=== PATIENT | female | born 1980 | race Caucasian/White ===

== ENCOUNTER → 2017-01-29 | Outpatient (CLI) | payer BC ==
[2014-11-29 09:08] VITALS: BP 118/68
[~2017-01-29] MED LIST: ASPI-482 PO; BUPR100T8 PO; CARI350T PO; CLON0.5T3 PO; DEXA4TAB PO; ESTR1PAT77 TD; ESTR8.1S2 TD; FAMC500T2 PO; FEXO1TAB27 PO; FLUO10CA13 PO; ISOM1CAP PO; JOINT JUICE PO; LORA0.5T PO; LORA10TA68 PO; MELO15TA23 PO; MELO7.5T29 PO; MULT1TAB52 PO; PROP10TA PO; PSEU120T9 PO; TRIA10.8 NS; VENTOLIN HFA18 GM IH; VITA1CAP PO
--- NOTE | 2017-01-29 10:17 | KCIC ---
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 Tremors which are related to patient positioning. Vomiting. Surgery was on January 01. Technique: Study is dated January 29, 2017. MRI evaluation of the brain was performed using sagittal T1, axial FLAIR, axial T2, axial T1, axial gradient echo, coronal T2, and axial diffusion with ADC mapping sequences. Preoperative MRI from September 14, 2012 was reviewed in comparison. Findings: There are postsurgical changes of suboccipital decompression. There is a postoperative fluid collection which extends both along the craniotomy and craniectomy sites down to the level of C4. This measures 8 cm craniocaudal, 5 cm AP, and 5 cm transverse. This fluid collection does not exert any mass effect on the cerebellum or the medulla. There is CSF both anterior and posterior to the cervicomedullary junction. There is no downward sagging of the brain. There are no subdural fluid collections or other findings to suggest intracranial hypotension. 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 The ventricles are normal in size and configuration. There is no acute intracranial hemorrhage. There is no restricted diffusion to suggest an acute infarct. Intracranial flow voids are preserved. Paranasal sinuses and mastoid air cells are clear. IMPRESSION: 1. Suboccipital decompression with postoperative fluid collection at the craniectomy site. Pseudomeningocele/CSF leak as well as seroma or hematoma are considerations. 2. Interval resection of pineal cysts. Electronically signed by: Matthew Jerry MD (01/29/2017 10:14 AM) [facility]IC[facility]
--- NOTE | 2017-01-29 10:38 | KCIC ---
INDICATION: Recent suboccipital decompression for Chiari I as well as pineal cyst resection. Tremors, vomiting, symptoms appear to be positional. Surgery was on January 01. TECHNIQUE: Sagittal T1, sagittal T2, sagittal STIR, axial T2, and axial T2 gradient sequences are provided. Comparison is from January 14, 2016. FINDINGS: Please see MRI brain report for description of the postoperative fluid collection at the craniectomy site. There is CSF both ventral and dorsal to the cord and the medulla. There is no cord signal abnormality. There is no worrisome marrow lesion. There is no marrow edema. There is report of partial laminectomy, a portion of the C1 and C2 posterior elements may have been resected. Both rings appear complete. Degenerative findings remain most notable at C5-C6 and C6-C7. Mild disc osteophyte complex at C5-C6 is noted. At C6-C7 there is a disc osteophyte complex and left paracentral protrusion. These findings are stable. IMPRESSION: 1. Postoperative findings of suboccipital decompression with postoperative fluid collection at the craniectomy site. 2. Postoperative fluid collection does not exert any mass effect at the cervical medullary junction or on the cervical cord. 3. Mild degenerative changes in the cervical spine are similar to the 2016 study, remain most notable at C5-C6 and C6-C7. Electronically signed by: Matthew Jerry MD (01/29/2017 10:35 AM) [facility]
== END | disposition home or self-care (01) ==
LOC: KCIC MRI 08:34
PROVIDERS: ATTEND Internal Medicine
DX: G93.5 Compression of brain (principal); R25.1 Tremor, unspecified; R53.1 Weakness; R11.10 Vomiting, unspecified
CPT/HCPCS: 70551; 72141

== ENCOUNTER → 2017-02-03 | Outpatient (CLI) | payer BC ==
[~2017-02-03] VITALS: Ht 160 cm; Wt 78.5 kg
[~2017-02-03] MED LIST changes: +ACET325T9 PO; +DIPH25CA58 PO; +ONDA4TAB10 PO
[2017-02-03 08:41] VITALS: BP 135/84
--- NOTE | 2017-02-03 10:53 | RAD ---
Indication possible infection. Assess opening and closing pressures. Lumbar puncture was explained to the patient. The risks of infection and bleeding were outlined. The possibility of damage to nerve roots was discussed. The possibility of a postprocedure headache necessitating placement of a blood patch was also discussed. The patient understood the risks associated with the procedure and wished to proceed The patient was placed in a left side down decubitus position. The lumbar spine was palpated and an appropriate level for entry into the subarachnoid space was identified with palpation and fluoroscopy. Skin was then prepped and draped in the routine fashion. Local anesthesia was accomplished with 1% lidocaine. Using a 20-gauge spinal needle and a midline approach the subarachnoid space was punctured at L2-3. Clear CSF was encountered. The opening pressure was 22 mmHg. Approximately 11.5 cc of clear CSF was withdrawn for analysis and placed in 4 tubes. Retrieved CSF was transferred to pathology. The closing pressure was 14 mmHg A single spot fluoroscopic image was associated with the procedure. Fluoroscopy time associated with the procedure was 1.4 minutes. IMPRESSION: Successful lumbar puncture under fluoroscopic guidance
[2017-02-03 11:06] LABS: CSF PROTEIN 44.7 mg/dL (15.0-45.0)
[2017-02-03 11:46] LABS: CSF CLARITY CLEAR; CSF COLOR COLORLESS
== END | disposition home or self-care (01) ==
LOC: RAD 08:23
PROVIDERS: ATTEND Neurological Surgery
DX: E34.8 Other specified endocrine disorders (principal); G93.5 Compression of brain
CPT/HCPCS: 62270; 82945; 84157; 87071; 87075; 87205; 89051

== ENCOUNTER 2017-02-04 13:00 | Emergency (ER) | payer BC ==
[~2017-02-04] VITALS: Ht 160 cm; Wt 78.5 kg
[~2017-02-04 13:00] MED LIST changes: -ACET325T9 PO; -DIPH25CA58 PO; -ONDA4TAB10 PO
--- NOTE | 2017-02-04 14:26 | PHYS DOC ---
Past Medical History Past Medical History: Other Additional Past Medical Histor: pineal cyst, subarachnoid cyst Past Surgical History: Other Additional Past Surgical Histo: craniotomy, laminectomy C1-2 Alcohol Use: None Drug Use: None Adult General Chief Complaint Chief Complaint: HEADACHE HPI HPI This is a very pleasant 36-year-old female who underwent posterior cranial fossa craniectomy with removal of a intercranial cyst. This surgery was completed on January 02, 2017. Since that time she's had persistent headaches and persistent weakness despite these debulking procedure. She was seen yesterday by differential radiology and underwent a lumbar puncture design specifically 2 drops of the fluid from intracranial fluid collection that she has had at C5 as well as to collect opening pressures. When this procedure was done yesterday she had no headache opening pressure initially was 22 mmHg closing pressure the but by the time the procedure was over was 14. I spoke directly to the interventional radiology completed this lumbar puncture and he read the dictation to be directly. At this point she has taken Tylenol and Motrin with some release of her symptoms. She is completely asymptomatic when she lies down flat she is extremely somatic when she sits up from a sitting or standing position. She denies any new focal neurologic deficits, vision changes, voice changes or changes in thought patterns. Patient denies any vomiting, nausea or other fevers chills or neck pain. Pain is 0 out of 10 at laying down significant moderate pain with sitting up. Pain is described as throbbing and achy. It is not worse of life or sudden onset. Review of Systems Review of Systems Constitutional: Denies fever or chills [] Eyes: Denies change in visual acuity, redness, or eye pain [] HENT: Denies nasal congestion or sore throat [] Respiratory: Denies cough or shortness of breath [] Cardiovascular: No additional information not addressed in HPI [] GI: Denies abdominal pain, nausea, vomiting, bloody stools or diarrhea [] : Denies dysuria or hematuria [] Musculoskeletal: Denies back pain or joint pain [] Integument: Denies rash or skin lesions [] Neurologic: She complains of frontal headache with generalized weakness with this new sensory changes. Endocrine: Denies polyuria or polydipsia [] Current Medications Current Medications Current Medications Medications (Trade) Dose Ordered Sig/Samson Start Time Stop Time Status Last Admin Dose Admin Acetaminophen (Tylenol) 1,000 mg 1X ONCE 8/9/17 14:45 02/04/17 14:46 DC 02/04/17 14:40 1,000 MG Diphenhydramine HCl (Benadryl) 50 mg 1X ONCE 02/04/17 14:45 02/04/17 14:46 DC 02/04/17 14:40 50 MG Ondansetron HCl (Zofran) 4 mg 1X ONCE 02/04/17 14:45 02/04/17 14:46 DC 02/04/17 14:40 4 MG Sodium Chloride 1,000 ml @ 1,000 mls/hr 1X ONCE 02/04/17 14:45 02/04/17 15:44 02/04/17 14:41 1,000 MLS/HR Allergies Allergies Allergies Coded Allergies Type Severity Reaction Last Updated Verified leuprolide Allergy Severe 11/28/14 Yes medroxyprogesterone Allergy Severe 11/28/14 Yes peanut Allergy Unknown 11/28/14 Yes Physical Exam Physical Exam His vital signs reviewed by me and recorded on the chart were borderline hypertension otherwise normal. Constitutional: Well developed, well nourished, no acute distress, non-toxic appearance. [] HENT: Normocephalic, atraumatic, bilateral external ears normal, oropharynx moist, no oral exudates, nose normal. [] Eyes: PERRLA, EOMI, conjunctiva normal, no discharge. [] Neck: Normal range of motion, no tenderness, supple, no stridor. [] Cardiovascular:Heart rate regular rhythm, no murmur [] Lungs & Thorax: Bilateral breath sounds clear to auscultation [] Skin: Warm, dry, no erythema, no rash. [] Back: No tenderness, no CVA tenderness. [] Extremities: No tenderness, no cyanosis, no clubbing, ROM intact, no edema. [] Neurologic: Alert and oriented X 3, normal motor function, normal sensory function, no focal deficits noted. [] Psychologic: Affect normal, judgement normal, mood normal. [] Current Patient Data Vital Signs Vital Signs Date Time Temp Pulse Resp B/P (MAP) Pulse Ox O2 Delivery O2 Flow Rate FiO2 02/04/17 15:20 80 117/62 (80) 98 Room Air 02/04/17 13:22 97.8 18 97.8 EKG EKG [] Radiology/Procedures Radiology/Procedures [] Course & Med Decision Making Course & Med Decision Making Pertinent Labs and Imaging studies reviewed. (See chart for details) []Hand Stapler note: Spoke with Hand Stapler called at of the service of the service at 2:15 PM Consult called back at 2:17 PM Discussed the case I presented and they agreed with course of action at this time. Hand Stapler note: Anesthesia services Hand Stapler called at of the service 2:17 PM Consult called back at 2:17 p.m. Discussed the case I presented and they agreed with treatment plan and they'll be down here approximately 08/29/29 in order to do the blood patch. We discussed opening pressure findings on Dr. Gustafson's dictated note. Patient had anesthesia at bedside by 2:30 p.m. Lumbar puncture blood patch was completed. Patient is resting, and without issue or neurologic deficit. Patient' s is no fever she's feeling markedly improved with intervention. She will be held in the emergency department and placed in a 30 angle at the bedside at 3: 30 PM. She will be set up 90 angle at 4:00 and released home. She is happy with the plan and disposition.. Dragon Disclaimer Dragon Disclaimer This electronic medical record was generated, in whole or in part, using a voice recognition dictation system. Departure Departure Impression: Primary Impression: Post lumbar puncture headache Disposition: HOME, SELF-CARE Condition: IMPROVED Referrals: DOMINIQUE EUBANKS MD (PCP) Patient Instructions: Spinal Headache Additional Instructions: Please return for any new or increasing focal neurologic deficits, fever greater than 102.2 with increasing neck pain and headache. Or if you have any questions concerns or headache is not responsive to therapy prescribed. Scripts Ondansetron (ZOFRAN ODT) 4 Mg Tab.rapdis 4 MG PO BID Y for NAUSEA/VOMITING for 7 Days, #14 TAB Prov: JOANA PINK MD 02/04/17 Acetaminophen (TYLENOL) 325 Mg Tablet 1-2 TAB PO QID, #60 TAB 2 Refills Prov: JOANA PINK MD 02/04/17 Diphenhydramine Hcl (BENADRYL) 25 Mg Capsule 1 CAP PO QHS, #30 CAP 1 Refill Prov: JOANA PINK MD 02/04/17 JOANA PINK MD Feb 04, 2017 14:26
[2017-02-04] MEDS ORDERED: ACETAMINOPHEN 500 MG TABLET PO ONE (14:45)
[2017-02-04] MEDS ORDERED: diphenhydrAMINE 50 MG/ML VIAL IVP ONE (14:45)
[2017-02-04] MEDS ORDERED: IV NORMAL SALINE 1000ML BAG 1,000 ML IV ONE (14:45)
[2017-02-04] MEDS ORDERED: ONDANSETRON PF 4 MG/2 ML VIAL. IV ONE (14:45)
[2017-02-04] MEDS ORDERED: ONDA4TAB10 PO (15:36)
[2017-02-04] MEDS ORDERED: ACET325T9 PO (15:36)
[2017-02-04] MEDS ORDERED: DIPH25CA58 PO (15:36)
[2017-02-04 15:50] VITALS: BP 114/76
== END 2017-02-04 16:21 | disposition home or self-care (01) ==
LOC: ER 13:00
DX: R51 Headache (principal); G97.1 Other reaction to spinal and lumbar puncture; R53.1 Weakness; Z88.8 Allergy status to other drugs, medicaments and biological substances; Z91.010 Allergy to peanuts; Y84.4 Aspiration of fluid as the cause of abnormal reaction of the patient, or of later complication, without mention of misadventure at the time of the procedure
CPT/HCPCS: 62273; 96361; 96374; 96375; 99284; J1200; J2405; J7030

== ENCOUNTER → 2017-06-19 | Outpatient (CLI) | payer BC ==
[~2017-06-19] MED LIST changes: +ACET325T9 PO; +DIPH25CA58 PO; +GADOBUTROL 10 MMOL/10 ML VIAL IV ONE; -ISOM1CAP PO; +ISOM1CAP9 PO; +ONDA4TAB10 PO
--- NOTE | 2017-06-19 15:35 | KCIC ---
MRI Brain with and without contrast History: Positional headaches, cognitive changes, CSF leak after ACM surgery, worsening memory loss Technique: Multiplanar, multi sequential pre and postcontrast MR imaging was performed of the brain. Contrast: 8 cc Gadavist Comparison: January 29, 2017 Findings: There again has been suboccipital decompression. Previously seen fluid collection extending through the craniectomy site has resolved. There is no new intra-axial mass effect, midline shift, or extra-axial fluid collection. There is no nodular enhancement of the leptomeninges or of the parenchyma. There is no restricted diffusion suggestive of a recent infarct or cytotoxic edema. There is preservation of the major arterial intracranial flow voids at the skull base. Paranasal sinuses are aerated. There is patchy very minimal fluid of the right mastoid air cells as seen previously, minimal thickening on the left also unchanged. Impression: 1. There again has been suboccipital decompression, interval resolution of previously seen postoperative fluid collection. No new intracranial abnormality is identified. Electronically signed by: Ronaldo Corea MD (06/19/2017 3:31 PM) [facility]-KCIC[facility]
== END | disposition home or self-care (01) ==
LOC: KCIC MRI 13:59
PROVIDERS: ATTEND Internal Medicine
DX: R51 Headache (principal); R41.3 Other amnesia; Z98.890 Other specified postprocedural states
CPT/HCPCS: 70553; 82565; A9585

== ENCOUNTER 2018-03-17 02:15 | Emergency (ER) | payer BC ==
[~2018-03-17] VITALS: Ht 160 cm; Wt 83.0 kg
[~2018-03-17 02:15] MED LIST changes: +CLON0.5T11 PO; -CLON0.5T3 PO; -GADOBUTROL 10 MMOL/10 ML VIAL IV ONE
[2018-03-17 02:56] LABS: BILIRUBIN,URINE NEGATIVE (NEG); CLARITY,URINE CLEAR; COLOR,URINE YELLOW; NITRITE,URINE POSITIVE (NEG); PROTEIN,URINE NEGATIVE (NEG-TRACE); UROBILINOGEN,URINE 0.2 mg/dL (0.2 mg/dL)
[2018-03-17 03:03] LABS: BACTERIA,URINE MANY /HPF (0-FEW); RBC,URINE OCC /HPF (0-2); SQUAMOUS EPITHELIAL CELL,UR FEW /LPF
--- NOTE | 2018-03-17 03:15 | PHYS DOC ---
Past Medical History Past Medical History: Other Additional Past Medical Histor: pineal cyst, subarachnoid cyst Past Surgical History: Other Additional Past Surgical Histo: craniotomy, laminectomy C1-2 Alcohol Use: Occasionally Drug Use: None Adult General Chief Complaint Chief Complaint: NEAR SYNCOPE HPI HPI Patient is a 37 year old female who presents with nonspecific neurologic symptoms. The patient was at baseline health until yesterday. While at work, she began to have some intermittent episodes of near syncope. She also found herself standing in the break room at work near the corner for an unknown certain amount of time. She did not have any lightheadedness or chest pain. She did not have any seizure activity. The patient describes episodes where she simply feels that she is not focusing and that she somehow loses some small amounts of time from her memory. Of note, the patient is status post craniectomy and neurosurgery in December 2016 for some sort of central nervous system cystectomy. She is normally followed by a neurologist at [facility]. She does endorse some chronic history of memory problems since her surgery but states these symptoms seem different. She does not have a known history of seizures. Denies headache, neck stiffness, fever. No additional recent illness is reported. The patient presented to the ER this evening and states she is not certain why she did not come in yesterday but feels that her failure to go to the ER also represents an abnormal symptom. She currently denies focal neurologic complaints. She did have some episode yesterday where she perceived that her left arm was weaker than normal but this was a fleeting symptom. Review of Systems Review of Systems Constitutional: Denies fever or chills Eyes: Denies change in visual acuity, redness, or eye pain HENT: Denies nasal congestion or sore throat Respiratory: Denies cough or shortness of breath Cardiovascular: No additional information not addressed in HPI GI: Denies abdominal pain : Denies dysuria Musculoskeletal: Denies back pain Integument: Denies rash Neurologic: Denies headache Endocrine: Denies polyuria All other systems were reviewed and found to be within normal limits, except as documented in this note. Current Medications Current Medications Current Medications Medications (Trade) Dose Ordered Sig/Samson Start Time Stop Time Status Last Admin Dose Admin Sodium Chloride 1,000 ml @ 1,000 mls/hr 1X ONCE 03/17/18 05:00 03/17/18 05:59 UNV Allergies Allergies Allergies Coded Allergies Type Severity Reaction Last Updated Verified leuprolide Allergy Severe 11/28/14 Yes medroxyprogesterone Allergy Severe 11/28/14 Yes peanut Allergy Unknown 11/28/14 Yes Physical Exam Physical Exam Constitutional: Well developed, well nourished, no acute distress, non-toxic appearance HENT: Normocephalic, atraumatic, bilateral external ears normal, oropharynx dry Eyes: PERRLA, EOMI, conjunctiva normal Neck: Normal range of motion Cardiovascular:Heart rate regular rhythm, no murmur Lungs & Thorax: Bilateral breath sounds clear to auscultation Abdomen: Bowel sounds keven Skin: Warm, dry, no erythema, no rash Extremities: No edema Neurologic: Alert and oriented X 3, 5 over 5 motor strength globally. She has 2 over 4 DTRs at the biceps and brachial radialis and patellar and Achilles levels. Finger to nose is intact. Heel to foreman is intact. Cranial nerves II-12 are intact bilaterally. Overall, normal neuro exam. Psychologic: Affect normal Current Patient Data Vital Signs Vital Signs Date Time Temp Pulse Resp B/P (MAP) Pulse Ox O2 Delivery O2 Flow Rate FiO2 03/17/18 02:30 98.2 81 18 153/102 (119) 97 Room Air 98.2 Lab Values Laboratory Tests Test 03/17/18 02:35 03/17/18 03:51 03/17/18 04:30 Urine Collection Type Unknown Urine Color Yellow Urine Clarity Clear Urine pH 5.0 Urine Specific [employer] 1.015 Urine Protein Negative mg/dL (NEG-TRACE) Urine Glucose (UA) Negative mg/dL (NEG) Urine Ketones (Stick) Negative mg/dL (NEG) Urine Blood Negative (NEG) Urine Nitrite Positive (NEG) Urine Bilirubin Negative (NEG) Urine Urobilinogen Dipstick 0.2 mg/dL (0.2 mg/dL) Urine Leukocyte Esterase Trace (NEG) Urine RBC Occ /HPF (0-2) Urine WBC 1-4 /HPF (0-4) Urine Squamous Epithelial Cells Few /LPF Urine Bacteria Many /HPF (0-FEW) Urine Mucus Slight /LPF Sodium Level 136 mmol/L (136-145) Potassium Level 3.7 mmol/L (3.5-5.1) Chloride Level 104 mmol/L (98-107) Carbon Dioxide Level 24 mmol/L (21-32) Anion Gap 8 (6-14) Blood Urea Nitrogen 10 mg/dL (7-20) Creatinine 1.0 mg/dL (0.6-1.0) Estimated GFR (Cockcroft-Gault) 61.7 Glucose Level 108 mg/dL (70-99) H Calcium Level 9.2 mg/dL (8.5-10.1) Troponin I Quantitative < 0.017 ng/mL (0.000-0.055) White Blood Count 5.4 x10^3/uL (4.0-11.0) Red Blood Count 4.39 x10^6/uL (3.50-5.40) Hemoglobin 14.1 g/dL (12.0-15.5) Hematocrit 40.1 % (36.0-47.0) Mean Corpuscular Volume 92 fL (79-100) Mean Corpuscular Hemoglobin 32 pg (25-35) Mean Corpuscular Hemoglobin Concent 35 g/dL (31-37) Red Cell Distribution Width 13.1 % (11.5-14.5) Platelet Count 270 x10^3/uL (140-400) Neutrophils (%) (Auto) 46 % (31-73) Lymphocytes (%) (Auto) 42 % (24-48) Monocytes (%) (Auto) 9 % (0-9) Eosinophils (%) (Auto) 3 % (0-3) Basophils (%) (Auto) 0 % (0-3) Neutrophils # (Auto) 2.5 x10^3uL (1.8-7.7) Lymphocytes # (Auto) 2.3 x10^3/uL (1.0-4.8) Monocytes # (Auto) 0.5 x10^3/uL (0.0-1.1) Eosinophils # (Auto) 0.2 x10^3/uL (0.0-0.7) Basophils # (Auto) 0.0 x10^3/uL (0.0-0.2) Laboratory Tests 03/17/18 04:30 Laboratory Tests 03/17/18 03:51 EKG EKG NSR. No STEMI Interpretation Time: 03:10 Radiology/Procedures Radiology/Procedures FINDINGS: No abnormal attenuation within the brain parenchyma. Prior suboccipital decompression surgical changes identified. No evidence of acute intracranial hemorrhage. No extra-axial fluid collections. No mass effect or midline shift. Ventricular size is appropriate. Basal cisterns are patent. No fractures identified.Renner-white differentiation is preserved.Globes and orbits are within normal limits. Paranasal sinuses and mastoid air cells are clear. IMPRESSION: No acute intracranial findings. Course & Med Decision Making Course & Med Decision Making Pertinent Labs and Imaging studies reviewed. (See chart for details) 03:20: Patient is seen and examined. CT ordered. Normal neurologic examination. 05:00: All results are reviewed and discussed with the patient. Her CT scan does not reveal acute or new findings. Her neurologic exam is normal. In the ER , she had a CBC and a BMP which were also normal. Her EKG was normal. Plan is for discharge home and the patient will follow up with her primary neurologist at [facility]. She will return to the ER for any new or worsening symptoms. Dragon Disclaimer Dragon Disclaimer This electronic medical record was generated, in whole or in part, using a voice recognition dictation system. Departure Departure Referrals: DOMINIQUE EUBANKS MD (PCP) RAMSEY BLANK DO Mar 17, 2018 03:15
--- NOTE | 2018-03-17 03:17 | EKG ---
[facility] [address] [place] [address] Test Date: 2018-03-17 Test Time: 03:09:05 Pat Name: BARRON SAMANIEGO Department: Room: Gender: F Medical Payment Poster: : 1980 Requested By: RAMSEY BLANK Order Number: [id number] Reading MD: William Bob MD Measurements Intervals [place] Rate: 78 P: 34 [place]: 194 QRS: 36 QRSD: 86 T: 10 QT: 404 QTc: 464 Interpretive Statements SINUS RHYTHM Electronically Signed On 03-17-2018 8:12:11 CDT by William Bob MD
--- NOTE | 2018-03-17 03:33 | RAD ---
CT HEAD INDICATION: near syncope COMPARISON: None Available. TECHNIQUE: 5 mm contiguous axial images were obtained from the skull base to the vertex. Exposure: One or more of the following individualized dose reduction techniques were utilized for this examination: 1. Automated exposure control 2. Adjustment of the mA and/or kV according to patient size 3. Use of iterative reconstruction technique FINDINGS: No abnormal attenuation within the brain parenchyma. Prior suboccipital decompression surgical changes identified. No evidence of acute intracranial hemorrhage. No extra-axial fluid collections. No mass effect or midline shift. Ventricular size is appropriate. Basal cisterns are patent. No fractures identified.Renner-white differentiation is preserved.Globes and orbits are within normal limits. Paranasal sinuses and mastoid air cells are clear. IMPRESSION: No acute intracranial findings. Electronically signed by: Jemal Layne MD (03/17/2018 3:29 AM) [id number]
[2018-03-17 04:08] LABS: CALCIUM 9.2 mg/dL (8.5-10.1); GFR 61.7; POTASSIUM 3.7 mmol/L (3.5-5.1)
[2018-03-17 04:44] LABS: BASO % 0 % (0-3); EOS # 0.2 x10^3/uL (0.0-0.7); EOS % 3 % (0-3); HEMATOCRIT 40.1 % (36.0-47.0); HEMOGLOBIN 14.1 g/dL (12.0-15.5); LYMPH # 2.3 x10^3/uL (1.0-4.8); LYMPH % 42 % (24-48); MEAN CORPUSCULAR HEMOGLOBIN 32 pg (25-35); MEAN CORPUSCULAR HGB CONC 35 g/dL (31-37); MEAN CORPUSCULAR VOLUME 92 fL (79-100); MONO # 0.5 x10^3/uL (0.0-1.1); MONO % 9 % (0-9); NEUT # 2.5 x10^3uL (1.8-7.7); NEUT % 46 % (31-73); PLATELET COUNT 270 x10^3/uL (140-400); RED BLOOD COUNT 4.39 x10^6/uL (3.50-5.40); RED CELL DISTRIBUTION WIDTH 13.1 % (11.5-14.5); WHITE BLOOD COUNT 5.4 x10^3/uL (4.0-11.0)
[2018-03-17 04:45] VITALS: BP 120/78
[2018-03-17] MEDS ORDERED: IV NORMAL SALINE 1000ML BAG 1,000 ML IV ONE (05:30)
== END 2018-03-17 05:14 | disposition home or self-care (01) ==
LOC: ER 02:15
DX: R55 Syncope and collapse (principal); Z88.8 Allergy status to other drugs, medicaments and biological substances; Z91.010 Allergy to peanuts
CPT/HCPCS: 36415; 70450; 80048; 81001; 84484; 85025; 93005; 96360; 99285; J7030

== ENCOUNTER → 2018-10-13 | Outpatient (CLI) | payer BC ==
--- NOTE | 2018-10-13 11:39 | KCIC ---
BILATERAL DIAGNOSTIC 3-D MAMMOGRAPHY AND BILATERAL BREAST ULTRASOUND History: Palpable lump in the right breast 3:00 position 9 cm the nipple. Palpable lump in the left breast 12:00 position 2.5 cm from the nipple and 8:30 o'clock position 6 cm from the nipple. Comparison: None. This is a baseline examination. Technique: Routine MLO and CC tomosynthesis (3D) digital views performed. Images reviewed by the radiologist at dedicated workstation. Findings: Breast Tissue Density C : The breasts are heterogeneously dense, which may obscure small masses. There are multiple small masses in the right and left breast with circumscribed are partially obscured borders. Glandular nodularity in the inner right breast at anterior depth. Probable intramammary lymph node in the upper right breast at posterior depth. There are no dominant masses, suspicious microcalcifications or architectural distortion. Real-time ultrasound imaging of the right and left breast is performed. There is no focal sonographic abnormality in the areas of palpable concern of the left breast. Small probable cysts are seen at the 1:00 and 2:00 position. In the right breast at the area of palpable concern 3:00 position 9 cm from the nipple, just deep to the dermis, there is a slightly hyperechoic lesion to surrounding fat measuring 1.8 x 0.6 x 1.1 cm. Finding may be a lipoma. At the 11:00 position 10 cm from the nipple there is a superficial hyperechoic lesion without posterior acoustic shadowing measuring 6 x 3 x 4 mm. Finding is indeterminate. Fat necrosis or a lipoma are considerations. Intramammary lymph node is seen at the 10:00 position 10.5 cm from the nipple. Small probable cysts are seen at the 1:00, 3:00, and 3:30 o'clock positions. IMPRESSION: 1. Bilateral mammogram demonstrates multiple small masses. There is no dominant or suspicious finding. 2. No sonographic abnormality at the 2 areas of palpable concern in the left breast. 3. There is a possible superficial lipoma in the right breast at the 3:00 position area of palpable concern. 4. Recommend six-month follow-up bilateral diagnostic mammogram and bilateral breast ultrasound to assess stability. BI-RADS category 3: Probably benign. The images were reviewed with computer-aided detection. Patient information is entered into the reminder system with a target due date for the next screening mammogram. Mammography is the most sensitive method for finding small breast cancers, but it does not detect them all and is not a substitute for careful clinical examination. A negative mammogram does not negate a clinically suspicious finding and should not result in delay in biopsying a clinically suspicious abnormality. "Our facility is accredited by the [employer] Mammography Program." Electronically signed by: Shahid Campuzano MD (10/13/2018 11:36 AM) [id number]
== END | disposition home or self-care (01) ==
LOC: KCIC MAMMO 09:28
PROVIDERS: ATTEND Internal Medicine
DX: N63.11 Unspecified lump in the right breast, upper outer quadrant (principal); N63.20 Unspecified lump in the left breast, unspecified quadrant
CPT/HCPCS: 76641; 77066; G0279; 77062

== ENCOUNTER → 2019-04-19 | Outpatient (CLI) | payer BC ==
[~2019-04-19] MED LIST changes: +CLON-77 PO; -CLON0.5T11 PO
--- NOTE | 2019-04-19 15:42 | KCIC ---
Bilateral diagnostic digital mammograms with 3-D tomosynthesis: Reason for examination: Follow-up nodules. Comparison is made to previous study dated 10/13/2018. Bilateral mammograms in CC and oblique projections were obtained with 2-D imaging and 3-D tomosynthesis imaging on a Siemens Inspiration unit and reviewed on the workstation. Interpretation was made with the benefit of CAD. The skin and nipples show no abnormalities. No abnormal axillary lymph nodes are seen. The breast parenchyma is heterogeneously dense. (Breast density: Category C.) There continue to be small nodular parenchymal densities bilaterally which are stable. There are no new dominant masses, suspicious calcifications or architectural distortion. Impression: No interval change in the nodules seen bilaterally. Ultrasound to follow. Your patient's mammogram demonstrates that she has dense breast tissue (breast density category C or D), which could hide abnormalities, and if she has other risk factors for breast cancer that have been identified, she might benefit from supplemental screening tests that may be suggested by you as her ordering physician. Dense breast tissue, in and of itself, is a relatively common condition. Therefore, this information is not provided to cause undue concern, but rather to raise your awareness and to promote discussion with your patient regarding the presence of other risk factors, in addition to dense breast tissue. Your patient's mammography results will be sent to her. BI-RAD Category 0: Incomplete. Needs additional imaging evaluation. Bilateral breast ultrasound: Comparison is made to previous study dated 10/13/2018. Bilateral whole breast ultrasound including evaluation of all 4 quadrants and the retroareolar and axillary regions of both breasts was performed. The left breast continues to show a 4.4 mm and a 8.6 mm cystic lesion at the 2:00 position 6 cm from the nipple. No abnormal appearing lymph nodes are seen in the axilla. The right breast continues show a 1.9 cm slightly hyperechoic lesion consistent with a lipoma at the 3:00 position 9 cm from the nipple which is unchanged. There continues to be a small 5.5 mm fibrocystic lesion at the 3:00 position 3 cm from the nipple. There continues be a 5 mm hypoechoic fibrocystic type lesion at the 3:30 position 4 cm from the nipple. No suspicious lesions are seen. No abnormal appearing lymph nodes are seen in the axilla. IMPRESSION: Benign-appearing cyst in the left breast. Small fibrocystic type lesions in the right breast at the 3:00 and 3:30 positions. Recommend continued 6 month follow-up ultrasound of the right breast. BI-RADS Category 3: Probably Benign. "Our facility is accredited by the [employer] Mammography [employer]." This patient's information has been entered into a reminder system for the patient to be notified with the results of her examination and a target date for the next mammogram. Electronically signed by: Jazlyn Masy MD (04/19/2019 3:39 PM) [id number]
== END | disposition home or self-care (01) ==
LOC: KCIC MAMMO 13:02
PROVIDERS: ATTEND Internal Medicine
DX: N63.10 Unspecified lump in the right breast, unspecified quadrant (principal); N63.20 Unspecified lump in the left breast, unspecified quadrant
CPT/HCPCS: 76641; 77066; G0279; 77062

== ENCOUNTER → 2020-10-02 | Outpatient (CLI) | payer MEDICARE ==
[~2020-10-02] MED LIST changes: +MULT-445 PO; -MULT1TAB52 PO
--- NOTE | 2020-10-02 11:47 | KCIC ---
Bilateral diagnostic digital mammograms with 3-D tomosynthesis: Reason for examination: Follow-up nodules. Comparison is made to previous studies dated 04/19/2019 and 10/13/2018. Bilateral mammograms in CC and oblique projections were obtained with 2-D imaging and 3-D tomosynthes is imaging on a Siemens Inspiration unit and reviewed on the workstation. Interpretation was made wit h the benefit of CAD. The skin and nipples show no abnormalities. No abnormal axillary lymph nodes are seen. The breast par enchyma shows scattered fatty and fibroglandular density. (Breast density: Category B.) There continu es to be a circumscribed lesion with fatty hilum consistent with an intramammary lymph node at 10:00 C position of the right breast which is stable. The additional small nodular lesions seen previously bilaterally have improved. There are no new dominant masses, suspicious calcifications or architectur al distortion. Impression: Continued presence of a nodule at the 10:00 C position of the right breast which probably represents an intramammary lymph node. Ultrasound to follow. Interval improvement in the additional nodules seen bilaterally. BI-RADS Category 0: Incomplete. Needs additional imaging evaluation. Right breast ultrasound: Ultrasound examination of the right breast was performed with attention to the upper outer quadrant. At the 10:00 position 11 cm from the nipple, there is an intramammary lymph node measuring 8.4 mm in greatest dimension which corresponds to the mammographic finding. No suspicious appearing lymph nodes are seen in the axilla. IMPRESSION: Small nodule consistent with an intramammary lymph node at the 10:00 position. No suspicious abnormal ity seen in the right breast. Recommend routine mammographic follow-up. BI-RADS Category 2: Benign. "Our facility is accredited by the [employer] Mammography [employer]." This patient's information has been entered into a reminder system for the patient to be notified wit h the results of her examination and a target date for the next mammogram. Electronically signed by: Jazlyn Mays MD (10/02/2020 11:44 AM) [id number]
== END ==
LOC: KCIC MAMMO 09:16
PROVIDERS: ATTEND Internal Medicine
DX: N63.11 Unspecified lump in the right breast, upper outer quadrant (principal); N64.89 Other specified disorders of breast
CPT/HCPCS: 76641; 77066; G0279; 77062

== ENCOUNTER 2021-03-07 10:42 | Emergency (ER) | payer MEDICARE ==
[~2021-03-07] VITALS: Ht 160 cm; Wt 93.0 kg
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
[2021-03-07 11:17] VITALS: BP 157/79
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
[2021-03-07] MEDS ORDERED: ALBU1.25 NEB (12:33)
== END 2021-03-07 13:01 | disposition home or self-care (01) ==
LOC: ER 10:42
DX: R05 Cough (principal); R06.02 Shortness of breath; J45.909 Unspecified asthma, uncomplicated; Z88.8 Allergy status to other drugs, medicaments and biological substances; Z91.010 Allergy to peanuts
CPT/HCPCS: 71046; 99283

== ENCOUNTER 2021-04-10 18:22 | Emergency (ER) | payer MEDICARE ==
[~2021-04-10] VITALS: Ht 160 cm; Wt 93.2 kg
[~2021-04-10 18:22] MED LIST changes: +ALBU1.25 NEB
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
[2021-04-10 20:10] VITALS: BP 134/70
--- NOTE | 2021-04-10 20:13 | RAD ---
PA and lateral chest. HISTORY: Short of air PA and lateral views of the chest show the lungs are clear. Heart is normal in size. There is no effu carolyn. IMPRESSION: 1. No acute chest disease. Electronically signed by: Familia Quintanilla MD (04/10/2021 8:10 PM) [facility]
== END 2021-04-10 20:48 | disposition home or self-care (01) ==
LOC: ER 18:22
DX: R06.02 Shortness of breath (principal); J45.909 Unspecified asthma, uncomplicated; Z88.8 Allergy status to other drugs, medicaments and biological substances; Z91.010 Allergy to peanuts
CPT/HCPCS: 71046; 99283

== ENCOUNTER 2021-11-21 12:58 | Emergency (ER) | payer MEDICARE ==
[~2021-11-21] VITALS: Ht 167.6 cm; Wt 73.2 kg
[~2021-11-21 12:58] MED LIST changes: +BUPR100T16 PO; -BUPR100T8 PO
[2021-11-21] MEDS ORDERED: DEXAMETHASONE SOD PHOS 4 MG/ML VIAL IVP ONE (13:15)
[2021-11-21] MEDS ORDERED: diphenhydrAMINE 50 MG/ML VIAL IVP ONE (13:15)
[2021-11-21] MEDS ORDERED: FAMOTIDINE 20 MG/2 ML VIAL IVP ONE (13:15)
--- NOTE | 2021-11-21 13:53 | PHYS DOC ---
Past Medical History Past Medical History: Asthma, Diabetes-Type II, High Cholesterol, Hypertension, Migraines, Other Additional Past Medical Histor: pineal&subarachnoid cyst,79 ASA,chiari malformation,severe enviro allergies (HAWK CALLES) Past Surgical History: Hysterectomy, Other Additional Past Surgical Histo: craniotomy, laminectomy C1-2 (HAWK CALLES) Smoking Status: Former Smoker Alcohol Use: Rarely Drug Use: None (HAWK CALLES) General Adult EDM: Chief Complaint: ALLERGIC REACTION HPI: HPI: Patient is a 41 year old female who presents with itchy rash across her chest, upper extremities and face since about 1230. 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 She received a shot as part of a desensitization regimen to environmental allergens such as grasses and ragweed. Approximately an hour and 15 minutes later, she states she started to feel "flushed." She took a second Claritin for the day at 1230. Patient denies associated shortness of breath, wheezing, cough, oropharyngeal swelling, dysphagia, N/V/D. She endorses some mild abdominal pain. Patient reports that she has an EpiPen, but she did not use it. She has no other complaints at this time. (HAWK CALLES) Review of Systems: Review of Systems: Constitutional: Denies fever, chills or generalized weakness Eyes: Denies change in visual acuity, visual field deficits or discharge HENT: Denies ear pain, nasal congestion or sore throat Respiratory: Denies cough or shortness of breath Cardiovascular: Denies chest pain, palpitations or edema GI: Denies nausea, vomiting, bloody stools or diarrhea : Denies dysuria or hematuria Musculoskeletal: Denies back pain or joint pain Integument: See HPI Neurologic: Denies headache, focal weakness or sensory changes (HAWK CALLES) Heart Score: C/O Chest Pain: No (HAWK CALLES) Current Medications: Current Medications Medications (Trade) Dose Ordered Sig/Samson Start Time Stop Time Status Last Admin Dose Admin Dexamethasone Sodium Phosphate (Decadron) 12 mg 1X ONCE 11/21/21 13:15 11/21/21 13:17 DC 11/21/21 13:20 12 MG Diphenhydramine HCl (Benadryl) 50 mg 1X ONCE 11/21/21 13:15 11/21/21 13:17 DC 11/21/21 13:20 50 MG Famotidine (Pepcid Vial) 40 mg 1X ONCE 11/21/21 13:15 11/21/21 13:17 DC 11/21/21 13:20 40 MG (HAWK CALLES) Allergies: Allergies: Allergies Coded Allergies Type Severity Reaction Last Updated Verified leuprolide Allergy Severe 11/28/14 Yes medroxyprogesterone Allergy Severe 11/28/14 Yes peanut Allergy Severe 03/17/18 Yes (HAWK CALLES) Physical Exam: PE: Constitutional: Well developed, well nourished, no acute distress, non-toxic appearance. HENT: Normocephalic, atraumatic, bilateral external ears normal, oropharynx moist, no oropharyngeal swelling, no macroglossia, nose normal. Eyes: PERRL, EOMI, conjunctiva normal, no discharge. Cardiovascular: Regular rhythm. Regular rate. Lungs & Thorax: Equal thoracic expansion, no increased work of breathing, breath sounds clear to auscultation. Abdomen: Soft, no tenderness, no masses, no pulsatile masses. Skin: Diffuse, blanching urticaria's rash noted across the chest, upper extremities, neck and face. Skin otherwise warm, dry. Neurologic: Alert and oriented x4, normal motor function, normal sensory function, no focal deficits noted. (HAWK CALLES) Current Patient Data: Vital Signs: Vital Signs Date Time Temp Pulse Resp B/P (MAP) Pulse Ox O2 Delivery O2 Flow Rate FiO2 11/21/21 14:50 76 16 128/74 (92) 100 Room Air 11/21/21 13:45 80 16 130/74 (92) 100 Room Air 11/21/21 12:59 98.1 84 18 154/79 (104) 100 Room Air 98.1 (HAKW CALLES) Course & Med Decision Making: Course & Med Decision Making Pertinent Labs and Imaging studies reviewed. (See chart for details) Patient is a 41-year-old female who presents with allergic reaction after desensitization immunotherapy. Patient was treated with IV Benadryl, Pepcid and dexamethasone. On reevaluation, patient is no longer flushed and she states she feels "so much better." She is instructed to continue taking Pepcid and Benadryl at home. She should follow-up with her primary care doctor and/or lead nitrate processor. Return precautions are provided. Patient understands and is agreeable to discharge plan. (HAWK CALLES) Ambrocio Disclaimer: Ambrocio Disclaimer: This electronic medical record was generated, in whole or in part, using a voice recognition dictation system. (HAWK CALLES) Departure Departure Impression: Primary Impression: Allergic reaction after allergen immunotherapy Disposition: HOME / SELF CARE / HOMELESS Condition: GOOD Referrals: DOMINIQUE EUBANKS MD (PCP) Patient Instructions: Allergies, Generic, Hives, [id number] Additional Instructions: Continue taking benadryl and pepcid for the next 3 days according to label. Return to the ER should your symptoms return or worsen, or you develop any new symptoms. EMERGENCY DEPARTMENT GENERAL DISCHARGE INSTRUCTIONS Thank you for coming to [facility] Emergency Department (ED) today and trusting us with you care. We trust that you had a positive experience in our Emergency Department. If you wish to speak to the department management, you may call the director at . YOUR FOLLOW UP INSTRUCTIONS ARE FOLLOWS: 1. Follow up with your primary care doctor. If you do not have a primary doctor, please ask for a resource list of physicians or clinics that may be able to assist you with follow up care. 2. The emergency provider has interpreted your imaging studies, if any were ordered. The radiology human resources specialist also reviewed them. If there is a change in the findings, you will be notified in 48 hours when at all possible. 3. If a lab test or culture has been done, your results will be reviewed and you will be notified if you need a change in treatment. 4. Follow instructions verbalized to you and refer to the printouts if needed. ADDITIONAL INSTRUCTIONS AND INFORMATION: 1. Your care today has been supervised by a physician who is specially trained in emergency care. Many problems require more than one evaluation for a complete diagnosis and treatment. We recommend that you schedule your follow up appointment as recommended to ensure complete treatment of you illness or injury. If you are unable to obtain follow up care and continue to have a problem, or if your condition worsens, we recommend that you return to the ED. 2. We are not able to safely determine your condition over the phone nor are we able to give sound medical advice over the phone. For these safety reasons, if you call for medical advice we will ask you to come to the ED for further evaluation. 3. If you have any questions regarding these discharge instructions please call the ED at . SAFETY INFORMATION: In the interest of safety, wellness, and injury prevention; we encourage you to wear your seat belt, if you smoke; quite smoking, and we encourage family to use a protective helmet for bicycling and other sporting events that present an increased risk for head injury. IF YOUR SYMPTOMS WORSEN OR NEW SYMPTOMS DEVELOP, OR YOU HAVE CONCERNS ABOUT YOUR CONDITION; OR IF YOUR CONDITION WORSENS WHILE YOU ARE WAITING FOR YOUR FOLLOW UP APPOINTMENT; EITHER CONTACT YOUR PRIMARY CARE DOCTOR, THE PHYSICIAN WHOSE NAME AND NUMBER YOU WERE GIVEN, OR RETURN TO THE ED IMMEDIATELY. Attending Signature I have participated in the care of this patient and I have reviewed and agree with all pertinent clinical information above including history, exam, and recommendations. (DEZ FRANCIS DO) HAWK CALLES November 21, 2021 13:53 DEZ FRANCIS DO Nov 28, 2021 05:51
[2021-11-21 14:50] VITALS: BP 128/74
== END 2021-11-21 14:51 | disposition home or self-care (01) ==
LOC: ER 12:58
DX: L27.0 Generalized skin eruption due to drugs and medicaments taken internally (principal); T45.1X5A Adverse effect of antineoplastic and immunosuppressive drugs, initial encounter; J45.909 Unspecified asthma, uncomplicated; E11.9 Type 2 diabetes mellitus without complications; E78.00 Pure hypercholesterolemia, unspecified; I10 Essential (primary) hypertension; G43.909 Migraine, unspecified, not intractable, without status migrainosus; Z87.891 Personal history of nicotine dependence; Z90.710 Acquired absence of both cervix and uterus; Z88.8 Allergy status to other drugs, medicaments and biological substances; Z91.010 Allergy to peanuts; Y92.89 Other specified places as the place of occurrence of the external cause
CPT/HCPCS: 96374; 96375; 99284; J1100; J1200; J3490